=== PATIENT | male | born 1990 | race Caucasian/White ===

== ENCOUNTER 2019-09-21 14:45 | Emergency (ER) | payer BC, SELFPAY ==
[2019-09-21 14:45] VITALS: BP 137/90; PULSE 96; RESP 16; O2SAT 99
[2019-09-21 14:46] VITALS: BP 127/95; PULSE 105; RESP 18; TEMP 36.6; O2SAT 98; BMI 21.6
--- NOTE | 2019-09-21 14:54 | EKG12_ITS ---
Test Reason : Blood Pressure : / mmHG Vent. Rate : 100 BPM Atrial Rate : 100 BPM P-R Int : 134 ms QRS Dur : 098 ms QT Int : 328 ms P-R-T Axes : 065 075 066 degrees QTc Int : 423 ms Normal sinus rhythm Normal ECG Confirmed by RAO WILKINSON MD ([id number]), commissioning editor CHLOE CEJA ([id number] on 09/24/2019 9:36:26 AM Referred By: Confirmed By:RAO WILKINSON MD
--- NOTE | 2019-09-21 15:08 | ED.VISSUMM ---
- ER Visit Summary Date of Service: 09/21/19 Chief Complaint: Increased heart rate History of Present Illness: The patient is a 29 M who states he has an increased heart rate. He notes that this morning around 3 AM. He took his pulse and it was higher than normal. He believes is from drinking too much caffeine. He states he has been drinking a lot of cold brew coffee, more than usual. He drank a lot of alcohol over the weekend at holiday parties as well. He denies any chest pain or shortness of breath with this. He is concerned because his mother side of the family has a history of heart disease. No history of DVT or PE. He has no other risk factors for this. He denies any dizziness or lightheadedness. Physical Examination: Vital signs reviewed. HEENT exam unremarkable. Heart is tachycardic and regular rhythm without murmurs. Lungs are clear to auscultation. Abdomen is soft and nontender. Extremities reveal no edema. Skin exam normal. Neurologic exam normal. Test Results: EKG is sinus rhythm with rate of 100. No ST changes. Laboratory studies normal except for glucose of 112 Emergency Department Course and Treatment: Patient was given IV fluids. His heart rate is now 98. He feels better. I told him to decrease his caffeine usage as this is likely the cause of his issues. He will increase hydration and will call his doctor for follow-up. Treatment Plan: [] Disposition: Discharge Impression: Heart racing Excessive caffeine use This note was generated with [employer] dictation software. It may contain incorrect words, spelling, and punctuation that were not noted in review of the chart prior to signing
[2019-09-21] MEDS: 0.9% Normal Saline 1,000 ML 999 ML IV (15:23)
[2019-09-21 15:34] LABS: Absolute Lymphocyte Count 2.15 X10^3/uL (0.83-4.51); Basophil# 0.11 X10^3/uL; Basophil% 1.4 % (0-1); Eosinophil# 0.02 X10^3/uL; Eosinophils% 0.2 % (0-5); Hematocrit 43.9 % (40-54); Lymphocyte # 2.15 X10^3/ul (4.0); Lymphocyte % 26.6 % (19-41); Mean Corp Hgb Conc 34.2 g/dL (32-36); Mean Corpuscular Hgb 30.4 pg (27.0-32.0); Mean Platelet Vol. 11.1 fl (6.2-12.0); Monocyte% 9.9 % (0-10); NRBC Flagged by Analyzer 0 % (0-5); Neutrophil # 4.96 X10^3/uL (2.7-7.7); Neutrophil % 61.5 % (47-70); Platelet Count 242 K/mm3 (150-450); RBC Distribution Width CV 12.5 % (11.6-14.6); RBC Distribution Width SD 41.1 fl (35.1-43.9); Red Blood Count 4.93 M/mm3 (4.6-6.2); White Blood Count 8.1 K/mm3 (4.4-11.0)
[2019-09-21 15:40] LABS: Anion Gap 6 (5-15); BUN 18 mg/dL (7-18); BUN/Creat Ratio 14.5 RATIO (10-20); Calcium,Total 9.2 mg/dL (8.5-10.1); Chloride 105 mmol/L (98-107); Creatinine, Serum 1.24 mg/dL (0.70-1.30); EST Glomerular Filtration Rate 72 mL/min (>60); Est Glom Filt Rate - Afr Amer 88 mL/min (>60); Estimated Creatinine Clearance 86.62 ml/min; Glucose 112 mg/dL (74-106); Sodium Level 139 mmol/L (136-145)
--- NOTE | 2019-09-21 15:54 | ED.DEP ---
ED Disposition - Plan for ED Patient: Disposition: Home or Assisted Living Instructions: Palpitations Referrals: Eva Monge [Primary Care Provider] -
[2019-09-21 16:00] VITALS: BP 145/97; PULSE 106; RESP 16; O2SAT 99
== END 2019-09-21 16:03 | disposition home or self-care (01) ==
PROVIDERS: Emergency Provider Emergency Medicine; Family Provider Family Medicine; PCP Family Medicine
DX: R00.0 Tachycardia, unspecified (principal); F15.90 Other stimulant use, unspecified, uncomplicated
CPT/HCPCS: 80048; 85025; 93005; 96360; 99283; J7030; A4216